=== PATIENT | female | born 1990 | race Caucasian/White ===

== ENCOUNTER 2017-06-11 10:48 | Emergency (ER) | payer BC ==
[~2017-06-11] VITALS: Ht 149.9 cm; Wt 61.2 kg
[2017-06-11] MEDS ORDERED: NAPR-1192 PO (10:57)
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
--- NOTE | 2017-06-11 12:10 | NUR ---
SHARON CLEMENTE AT BEDSIDE FOR EVAL.
[2017-06-11] MEDS ORDERED: DIAZEPAM 5 MG TABLET ONE (12:27)
[2017-06-11] MEDS ORDERED: HYDROMORPHONE 1 MG/1 ML DISP.SYRIN ONE ×2 (12:28→13:20)
[2017-06-11] MEDS ORDERED: TDAP [DIPH/PERTUSSIS/TET] 0.5 ML VIAL IM ONE ×2 (12:28→12:30)
[2017-06-11] MEDS ORDERED: HYDROMORPHONE 1 MG/1 ML DISP.SYRIN IV ONE ×2 (12:30→13:30)
[2017-06-11] MEDS ORDERED: DIAZEPAM 5 MG/ML 2 ML DISP.SYRIN IV ONE (12:30)
[2017-06-11] MEDS ORDERED: BACITRACIN ZINC OINT (15 GM) 15 GM TUBE TP SCH (12:30)
[2017-06-11] MEDS ORDERED: ONDANSETRON HCL/PF 4 MG/2 ML VIAL ONE (12:52)
[2017-06-11] MEDS ORDERED: ONDANSETRON HCL/PF 4 MG/2 ML VIAL IV ONE (13:00)
[2017-06-11] MEDS ORDERED: LIDOCAINE/PRILOCAINE (5GM) 5 GM TUBE TP ONE ×2 (13:19→13:30)
--- NOTE | 2017-06-11 13:59 | NUR ---
RADIOLOGY AT BEDSIDE FOR R HEEL XRAY.
--- NOTE | 2017-06-11 15:54 | NUR ---
WOUND CARE PROVIDED. PT IS D/C HOME IN STABLE CONDITION.
[2017-06-11 16:03] VITALS: BP 132/76
== END 2017-06-11 16:03 | disposition home or self-care (01) ==
LOC: ER 10:53
DX: S46.912A Strain of unspecified muscle, fascia and tendon at shoulder and upper arm level, left arm, initial encounter (principal); S90.31XA Contusion of right foot, initial encounter; S30.811A Abrasion of abdominal wall, initial encounter; S60.511A Abrasion of right hand, initial encounter; S80.812A Abrasion, left lower leg, initial encounter; S90.812A Abrasion, left foot, initial encounter; S40.812A Abrasion of left upper arm, initial encounter; S40.811A Abrasion of right upper arm, initial encounter; M62.838 Other muscle spasm; Z88.2 Allergy status to sulfonamides; Z88.0 Allergy status to penicillin; Z90.49 Acquired absence of other specified parts of digestive tract; Z90.89 Acquired absence of other organs; V29.9XXA Motorcycle rider (driver) (passenger) injured in unspecified traffic accident, initial encounter; Y93.89 Activity, other specified; Y92.89 Other specified places as the place of occurrence of the external cause; Y99.8 Other external cause status
CPT/HCPCS: 73650-TC; 90715; A4606; A6402; J1170; J2405; Z7610